=== PATIENT | male | born 2005 | race Caucasian/White ===

== ENCOUNTER 2023-04-26 20:35 | Emergency (ER) | payer BC, SELFPAY ==
--- NOTE | ~2023-04-26 | XR_ITS ---
EXAMINATION: XR HAND, LEFT CLINICAL INFORMATION: Laceration second digit. Rule out foreign body. COMPARISON: None available. TECHNIQUE: PA, lateral, and oblique views of the left hand. FINDINGS: The bones and soft tissues are normal. No fracture or radiopaque foreign body. Alignment is anatomic. Joint spaces are maintained. No erosions or soft tissue calcifications. XR/XR hand LT min 3V IMPRESSION: Unremarkable left hand exam. No radiopaque foreign body seen, especially in the second digit.
--- NOTE | 2023-04-26 20:47 | ED.UPPEXIN ---
HPI - Extremity Injury (Upper) General Chief Complaint: Wound/Laceration Stated Complaint: LT index finger lac Time Seen by Provider: 04/26/23 22:50 Source: patient, RN notes reviewed and old records reviewed Mode of arrival: ambulatory Limitations: no limitations History of Present Illness HPI narrative: 17-year-old male presents for evaluation of a hand injury. Patient reports that just prior to arrival he ?punched a TV. ? He states there was no specific reason except that ?I thought I would be funny. ? He sustained a small laceration to the back of the left hand He reports his tetanus is up-to-date Related Data Allergies Allergy/AdvReac Type Severity Reaction Status Date / Time No Known Allergies Allergy Verified 04/26/23 20:47 Review of Systems Constitutional: Constitutional: Denies chills and Denies fever(s) Musculoskeletal: Musculoskeletal: Reports arthralgias Integumentary/Breasts: Skin/Breast: Reports wounds PMFSH Social History Social History Advance Directives: No Advance Directives Information Provided: No Physical Exam Vital Signs: Vital Signs: Last Vital Signs Temp 98.3 F 04/26/23 20:48 Resp 16 04/26/23 20:48 BP 152/80 H 04/26/23 20:48 Pulse Ox 100 04/26/23 20:48 O2 Del Method Room Air 04/26/23 20:48 BMI result Body Mass Index 19.8 Const: General: healthy appearing, comfortable, no acute distress, alert and awake Nutritional Appearance: well nourished Orientation/consciousness: patient oriented x3 HEENT: Head: Yes normocephalic and Yes atraumatic Eyes: Eyelids: Yes eyelids normal Conjunctivae: conjunctivae normal Sclerae: sclerae normal Corneas: corneas normal Pupils: Equal, round and reactive pupils present EOM: EOMs intact bilaterally Neck: Neck: Yes full ROM Resp: Effort & Inspection: normal respiratory effort, able to speak in complete sentences and not labored Skin: Other: Patient has a very small, superficial 0.5 cm partial-thickness laceration to the dorsal surface of left hand overlying the 3rd MCP joint. There is a larger skin avulsion on the dorsal surface of the left 2nd PIP joint. This is about 2 x 2 cm General skin exam: elasticity normal Neuro: General: patient oriented x3 Cranial nerves: Yes Equal, round and reactive pupils present and Yes Bilaterally intact EOM present Cognition (Neuro): normal cognition Extrem: Other: Patient has full range of motion with flexion-extension of all fingers of left hand. Course Course Course Narrative: RME: 17 year-old M w/no PMHx presenting to the ED c/o laceration to L index finger & middle knuckle s/p punching TV [employer]. denies possible FB. Vaccinations UTD. avulsion/laceration to L 2nd digit PIP & lac to 3rd digit MCP XRs ordered Full HPI, ROS and PE to be performed by primary ED provider. Medical Decision Making Medical Decision Making MDM Narrative: Patient has a small laceration to the MCP joint. The wound is well approximated, no active bleeding. It was closed with Dermabond to provide complete closure. Patient's tetanus up-to-date, x-ray shows no evidence of fracture or retained foreign bodies. The avulsion on the left 2nd finger was sealed with skin glue, however it was a skin avulsion injury, and not a true laceration. No active bleeding. Differential Diagnosis Differential Diagnoses: The differential diagnosis associated with the presentation includes Skin avulsion Laceration Contusion Hand fracture Independent Interpretation I performed an independent interpretation of an: Plain X-Ray (No foreign body or obvious fracture) Radiology Impression Discussion of test interpretation with radiology: I have reviewed the radiologist's reading. Radiologist Impression: Unremarkable left hand exam. No radiopaque foreign body seen. Especially in the 2nd digit Discharge Plan Discharge Clinical Impression: Avulsion of skin Patient Disposition: Home, Self-Care Instructions: Skin Avulsion (ED) Additional Instructions: Your x-ray did not show any fractures or retained foreign body in the wounds. You had a layer of skin glue applied to the avulsion injuries Keep the area clean and dry for tonight. Starting tomorrow when you wake up, it should be waterproof and you may wash your hands The skin glue should resolve on its own in about 1 week Follow-up with your primary doctor or return for new or worsening symptoms Stand Alone Forms: Work/School Release Interventions: ED Discharge Assessment Last Done: 04/26/23 23:36
[2023-04-26 20:48] VITALS: BP 152/80; RESP 16; TEMP 36.8; O2SAT 100; BMI 19.8
--- NOTE | 2023-04-26 21:28 | PC.NURSE ---
small abrasion to L. middle knuckle. no bleeding. avulsion lac to L. index finger. no bleeding at this time. both cleaned with sterile water/iodine. awaiting primary eval by ed provider.
== END 2023-04-26 23:37 | disposition home or self-care (01) ==
PROVIDERS: Emergency Provider Student in an Organized Health Care Education/Training Program
DX: S61.211A Laceration without foreign body of left index finger without damage to nail, initial encounter (principal); W25.XXXA Contact with sharp glass, initial encounter; Y93.9 Activity, unspecified; Y92.9 Unspecified place or not applicable; Y99.8 Other external cause status
CPT/HCPCS: 12001; 73130; 99282; 99283